=== PATIENT | male | born 1995 | race Caucasian/White ===

== ENCOUNTER → 2020-09-25 | Outpatient (CLI) | payer OTHER ==
[~2020-09-25] MED LIST: IBUPROFEN600 MG PO
[2020-09-26 08:14] LABS: VITAMIN D, 25-HYDROXY 8.4 ng/mL (30.0-100.0)
[2020-09-26 12:14] LABS: RHEUMATOID ARTHRITIS FACTOR <10.0 IU/mL (0.0-13.9)
[2020-09-27 00:07] LABS: CCP ANTIBODIES IGG/IGA 6 units (0-19)
== END ==
LOC: LAB 09:44
PROVIDERS: Nurse Practitioner Family
DX: R20.0 Anesthesia of skin (principal); D89.9 Disorder involving the immune mechanism, unspecified; M54.30 Sciatica, unspecified side; M25.50 Pain in unspecified joint; R76.8 Other specified abnormal immunological findings in serum; S32.000A Wedge compression fracture of unspecified lumbar vertebra, initial encounter for closed fracture
CPT/HCPCS: 36415; 72040; 72070; 72100; 82728; 83520; 85652; 86140; 86200; 86431